=== PATIENT | female | born 1975 | race Hispanic/Latino ===

== ENCOUNTER 2017-07-10 12:42 | Emergency (ER) | payer OTHER ==
[~2017-07-10] VITALS: Ht 152.4 cm; Wt 113.6 kg
[2017-07-10 12:45] VITALS: BP 160/87; PULSE 98; RESP 17; O2SAT 100
--- NOTE | 2017-07-10 13:03 | ED.REPORT ---
HPI-Abd Pain F 40 and Over Date of Service Jul 10, 2017 ED Provider: Analilia Espino History of Present Illness: bilateral lower abd pain . started on 06/30, comes and goes. ongoing nausea. primary care is KENDELL Christy . Came in today because of positive test today. Had 2 previous etopic 12 years ago. Is pain free at present. Nursing Notes Stated Complaint: ABDOMINAL PAIN Chief Complaint: Female Abdominal Pain Nursing Notes Reviewed: Yes Allergies: Coded Allergies: clindamycin (Verified Allergy, Intermediate, HIVES, 07/10/17) doxycycline (Verified Allergy, Unknown, 09/11/15) lamotrigine (Verified Allergy, Unknown, 10/24/15) morphine (Verified Allergy, Unknown, FREAKS OUT, 09/11/15) Uncoded Allergies: SULFAMETHOXAZOLE-TMP DS (Allergy, Unknown, raised red rash/, 11/24/12) General Time Seen by MD: 13:02 Chief Complaint Other (positive pregnanat test, concerned about etopic) Sudden in Onset?: No Past Medical History Past Medical History Anxiety Reports: Asthma, Diabetes mellitus, GERD Past Surgical History History of ectopic times 2 Reports: Cholecystectomy Smoking History Never Smoker Social History Alcohol Use: "Social" Drug Use: Denies drug use Occupation single no work or school 07/10/2017 Ambulatory Status Independent Review of Systems Basic Review of Systems Eyes: Vision NL, No discharge Skin: No bruising, No rash, No itch Psychiatric: Normal thought content Physical Exam Vital Signs Vital Signs (First) Date Time Temp Pulse Resp B/P Pulse Ox O2 Delivery O2 Flow Rate FiO2 07/10/17 12:45 36.8 98 17 160/87 100 Room Air Initial VS: Reviewed, Vital signs normal Head / Eyes: Atraumatic, Normocephalic, PERRL ENT: Mucous membranes moist, Conjunctiva normal, No scleral icterus Neck: Supple, Non-tender, Full range of motion Lymphatic: No lymphadenopathy Extremities: Vascular intact, Neuro intact, No swelling, No tenderness Skin: Warm, Dry, No cyanosis Neurologic: Alert, Oriented, Nonfocal Psychiatric: Mood/affect normal, Behavior normal, Normal thought content General/Constitutional: Awake, Alert, No acute distress, Well appearing, Well developed Respiratory / Chest: Atraumatic, Breath sounds NL, Breath sounds = bilat, No respiratory distress Cardiovascular: Heart rate NL, Regular rhythm, Heart sounds NL, No gallop Abdomen: Atraumatic, Soft, Non-tender, McBurney's non-tender Back: Atraumatic, Inspection NL, Full range of motion, Painless range of motion ENT: Atraumatic, Airway patent, Mucous membranes moist, Pharynx NL Interpretation & Diagnostics Lab Results Interpretation Result Diagram: 07/10/17 1310 07/10/17 1310 Test 07/10/17 13:00 07/10/17 13:10 Urine Color Yellow (YELLOW) Urine Appearance Hazy (CLEAR,HAZY) Urine pH 6.0 (5.0-8.0) Urine Specific [place] 1.020 (1.003-1.035) Urine Protein Negativemg/dL (NEG,TRACE) Urine Glucose (UA) Negativemg/dL (NEGATIVE) Urine Ketones >=80mg/dL (NEGATIVE) Urine Occult Blood Small (NEGATIVE) Urine Nitrite Negative (NEGATIVE) Urine Bilirubin Small (NEGATIVE) Urine Ictotest Negative (Negative) Urine Urobilinogen Normalmg/dL (NORMAL) Urine Leukocyte Esterase Negative (NEGATIVE) Urine RBC 0-2/hpf (0-2) Urine WBC 0-5/hpf (0-5) Urine Epithelial Cells Few/hpf (NONE-MOD) Urine Crystals None seen (NONE SEEN) Urine Bacteria Moderate/hpf (NONE-FEW) Urine Hyaline Casts None/lpf (NONE) Urine Granular Casts None seen (NONE SEEN) Urine Waxy Casts None seen (NONE SEEN) Urine Red Blood Cell Casts None seen (NONE SEEN) Urine White Blood Cell Casts None seen (NONE SEEN) Urine Mucus Present (None Seen) Urine Trichomonas None seen (NONE SEEN) Urine Yeast None (NONE SEEN) Urinalysis Comment None Urine Culture Reflexed Indicated White Blood Count 11.1th/mm3 (3.8-10.1) Red Blood Count 5.11mil/mm3 (3.90-5.20) Hemoglobin 13.6g/dL (12.0-15.6) Hematocrit 41.6% (35.0-46.0) Mean Corpuscular Volume 81.4fL (81-100) Mean Corpuscular Hemoglobin 26.6pg (27.0-35.0) Mean Corpuscular Hemoglobin Concent 32.7% (32.0-37.0) Red Cell Distribution Width 14.1% (12.3-15.4) Platelet Count 347bil/L (150-400) Neutrophils (%) (Auto) 69.3% (40-74) Lymphocytes (%) (Auto) 24.9% (14-46) Monocytes (%) (Auto) 4.5% (4-12) Eosinophils (%) (Auto) 0.8% (0-5) Basophils (%) (Auto) 0.1% (0-3) Sodium Level 135mEq/L (134-144) Potassium Level 3.5mEq/L (3.5-5.2) Chloride Level 99mEq/L (97-108) Carbon Dioxide Level 17mmol/L (18-29) Blood Urea Nitrogen 11mg/dL (6-24) Creatinine 0.58mg/dL (0.57-1.00) Estimat Glomerular Filtration Rate 165mL/min (>59) Glucose Level 131mg/dL (60-99) Calcium Level 8.8mg/dL (8.5-10.1) Magnesium Level 1.9mg/dL (1.6-2.6) Total Bilirubin 0.3mg/dL (0.0-1.2) Aspartate Amino Transf (AST/SGOT) 22U/L (0-50) Alanine Aminotransferase (ALT/SGPT) 26U/L (0-32) Alkaline Phosphatase 65U/L (25-150) Total Protein 7.7g/dL (6.4-8.4) Albumin 4.3g/dL (3.4-5.0) Lipase 25U/L (13-60) Human Chorionic Gonadotropin, Qual 5468 (Negative) Hold Sweeney Top Tube Received (Received) US Focused OB PROCEDURE: US OB<14 WKS+OB TRANSVAG INDICATIONS: 42 year-old female with bilateral lower abdominal pain. OUTSIDE/PRIOR DATING DATA: Last menstrual period (LMP): June 16, 2017. LMP-based estimated date of delivery (DENY): March 23, 2017. First dating scan (date and location): Present examination. Estimated date of delivery (DENY) from first dating scan: March 09, 2017. TECHNIQUE: Real-time scanning was performed of the fetus and maternal pelvic organs, with image documentation. Endovaginal scanning was also performed to better visualize the fetus and maternal ovaries. COMPARISON: None. FINDINGS: Embryo: Single intrauterine gestational sac is present, with mean sac diameter of 5.6 mm corresponding with 5 weeks 2 days estimated gestational age. pole and yolk sac are not yet visualized. Measurement variability in dating: +/- 4 weeks by LMP, +/- 7 days by mean sac diameter (use before 6 weeks gestation if crown-rump length not able to be measured), +/- 5 days by crown-rump length (up to 8 weeks 6 days gestation), +/- 7 days by crown-rump length (up to 13 weeks 6 days gestation). Maternal organs: Ovaries are normal in size bilaterally, with right adnexal corpus luteal cyst of . IMPRESSION: 1. Single intrauterine gestational sac, with ultrasound derived estimated gestational age of 5 weeks 2 days, plus or minus one week. Yolk sac and pole are not yet visualized. As such, viable intrauterine cannot be confirmed at this time. 2. No sonographic explanation for bilateral lower abdominal pain. Dictated by: Jose Alberto Dhillon M.D. on 07/10/2017 at 16:20 Approved by: Jose Alberto Dhillon M.D. on 07/10/2017 at 16:26 Re-Eval/Medical Decision Med Decision/Clinical Course 42 year old female presents for evualation of positive test this am. Patient with hx of 2 prior etopic. US show gestational sac in the uterus, no heart rate yet. No sign of etopic, encouraged patient to follow with [facility] next week. Discharge & Departure Primary Impression: Weeks of gestation: less than 8 weeks Qualified Code: Z3A.01 - Less than 8 weeks gestation of Disposition: Home Patient Instructions: First Trimester (ED) Additional Instructions: Your labs are good. Your HCG is 5468, about 4 to 5 weeks along. The US shows a gestational sac in the uterus. At this time no heart beat is noted, it is likely too early. Please follow with [facility] on Wednesday. STD testing is pending. If anything comes back positive, we will contact you. Azithromycin is safe in , however, it is always best to keep medication to a minimum for the first 12 weeks. Congratulations! Continue with your prenatals. Referrals: Amie Christy MD (PCP) EDSupervising Provider for APC: Malachi Boateng MD copies to: Amie Christy MD, Sue ARNP Jul 10, 2017 13:03
[2017-07-10 13:33] LABS: BASOPHILS % (AUTO) 0.1 % (0-3); EOSINOPHILS % (AUTO) 0.8 % (0-5); MONOCYTES % (AUTO) 4.5 % (4-12); Mean Corpuscular Hemoglobin 26.6 pg (27.0-35.0); Mean Corpuscular Volume 81.4 fL (81-100); NEUTROPHILS % (AUTO) 69.3 % (40-74); Platelet Count 347 bil/L (150-400)
[2017-07-10 13:50] LABS: APPEARANCE,URINE HAZY (CLEAR,HAZY); COLOR,URINE YELLOW (YELLOW)
[2017-07-10 13:51] LABS: OCCULT BLOOD,URINE SMALL (NEGATIVE); UROBILINOGEN,URINE NORMAL (NORMAL)
[2017-07-10 13:52] LABS: ICTOTEST,URINE NEGATIVE (Negative)
[2017-07-10 14:09] LABS: Magnesium 1.9 mg/dL (1.6-2.6)
[2017-07-10 15:23] VITALS: BP 114/86; PULSE 78; RESP 20; O2SAT 98
[2017-07-10 16:07] VITALS: BP 114/86; PULSE 78; RESP 20; O2SAT 98
--- NOTE | 2017-07-10 16:28 | DRSVH ---
PROCEDURE: US OB<14 WKS+OB TRANSVAG INDICATIONS: 42 year-old female with bilateral lower abdominal pain. OUTSIDE/PRIOR DATING DATA: Last menstrual period (LMP): June 16, 2017. LMP-based estimated date of delivery (DENY): March 23, 2017. First dating scan (date and location): Present examination. Estimated date of delivery (DENY) from first dating scan: March 09, 2017. TECHNIQUE: Real-time scanning was performed of the fetus and maternal pelvic organs, with image documentation. Endovaginal scanning was also performed to better visualize the fetus and maternal ovaries. COMPARISON: None. FINDINGS: Embryo: Single intrauterine gestational sac is present, with mean sac diameter of 5.6 mm correspondin g with 5 weeks 2 days estimated gestational age. pole and yolk sac are not yet visualized. Measurement variability in dating: +/- 4 weeks by LMP, +/- 7 days by mean sac diameter (use before 6 weeks gestation if crown-rump length not able to be measured), +/- 5 days by crown-rump length (up t o 8 weeks 6 days gestation), +/- 7 days by crown-rump length (up to 13 weeks 6 days gestation). Maternal organs: Ovaries are normal in size bilaterally, with right adnexal corpus luteal cyst of pr egnancy. IMPRESSION: 1. Single intrauterine gestational sac, with ultrasound derived estimated gestational age of 5 weeks 2 days, plus or minus one week. Yolk sac and pole are not yet visualized. As such, viable intra uterine cannot be confirmed at this time. 2. No sonographic explanation for bilateral lower abdominal pain. Dictated by: Jose Alberto Dhillon M.D. on 07/10/2017 at 16:20 Approved by: Jose Alberto Dhillon M.D. on 07/10/2017 at 16:26
== END 2017-07-10 16:09 | disposition home or self-care (01) ==
LOC: SED 12:42
DX: O26.891 Other specified pregnancy related conditions, first trimester (principal); R10.30 Lower abdominal pain, unspecified; J45.909 Unspecified asthma, uncomplicated; K21.9 Gastro-esophageal reflux disease without esophagitis; E11.9 Type 2 diabetes mellitus without complications; Z90.49 Acquired absence of other specified parts of digestive tract; Z3A.01 Less than 8 weeks gestation of pregnancy; Z87.59 Personal history of other complications of pregnancy, childbirth and the puerperium; Z88.8 Allergy status to other drugs, medicaments and biological substances; Z88.5 Allergy status to narcotic agent; Z88.2 Allergy status to sulfonamides; Z88.1 Allergy status to other antibiotic agents

== ENCOUNTER 2017-07-22 20:35 | Emergency (ER) | payer OTHER ==
[~2017-07-22] VITALS: Ht 152.4 cm; Wt 112.3 kg
[2017-07-22 20:55] VITALS: BP 144/100; PULSE 94; RESP 16; O2SAT 98
--- NOTE | 2017-07-22 21:20 | ED.REPORT ---
HPI-Preg Under 20 Weeks Date of Service Jul 22, 2017 ED Provider: Denys Wu MD Pt is a 6 week 4 day , 42 year old female with a history of asthma, diabetes mellitus, and anxiety who presents to the ED complaining of abnormal bleeding during intercourse onset tonight. Pt states that she felt no pain during the intercourse. She has had two previous ectopic pregnancies 12 years ago, but was seen in the ED on 07/10/17 for abdominal pain and determined that her was uterine and normal. Additional symptoms include mild dysuria that is baseline after intercourse, rib pain, nausea, vomiting, and difficult eating. Pt denies abdominal pain, vaginal pain now or vaginal discharge prior to having intercourse or in previous pregnancies. Nursing Notes Stated Complaint: BLEEDING, 2 MONTHS Chief Complaint: Female Abdominal Pain Nursing Notes Reviewed: Yes Allergies: Coded Allergies: clindamycin (Verified Allergy, Intermediate, HIVES, 07/22/17) doxycycline (Verified Allergy, Unknown, 07/22/17) lamotrigine (Verified Allergy, Unknown, 07/22/17) morphine (Verified Allergy, Unknown, FREAKS OUT, 07/22/17) Uncoded Allergies: SULFAMETHOXAZOLE-TMP DS (Allergy, Unknown, raised red rash/, 11/24/12) General Time Seen by Provider: 21:19 Chief Complaint Vaginal bleeding Context: : Known 1st trim Hx Obtained From: Patient Arrived By: Walk-in Onset Occurred: 1 - 4 hours ago Severity: Current: No pain currently Severity: Maximum: No pain Recent Healthcare: Recent doctor visit Similar Sx Previous: No Past Medical History Past Medical History Anxiety Reports: Asthma, Diabetes mellitus, GERD Past Surgical History History of ectopic times 2 Reports: Cholecystectomy Smoking History Never Smoker Social History Alcohol Use: "Social" Drug Use: Denies drug use Ambulatory Status Independent Review of Systems Difficulty eating No vaginal pain currently GI: Reports: Nausea, Vomiting, Denies: Abdominal pain Female: Reports: Dysuria (mild, baseline during intercourse), Vaginal bleeding - abnl, Denies: Vaginal discharge Complete sys rev & neg: except as marked. Physical Exam Initial Vital Signs Vital Signs (First) Date Time Temp Pulse Resp B/P Pulse Ox O2 Delivery O2 Flow Rate FiO2 07/22/17 20:55 36.9 94 16 144/100 98 Room Air Initial VS: Reviewed, Vital signs abnormal Head / Eyes: Atraumatic, Normocephalic Neck: Supple, Full range of motion Extremities: Vascular intact, Neuro intact, No swelling, No tenderness Skin: Warm, Dry, No cyanosis Neurologic: Alert, Oriented, Nonfocal Psychiatric: Mood/affect normal, Behavior normal, Normal thought content General/Constitutional: Awake, Alert Abdomen: Atraumatic, Non-tender Respiratory / Chest: Atraumatic, Breath sounds NL, Breath sounds = bilat, No respiratory distress Cardiovascular: Heart rate NL, Regular rhythm, Heart sounds NL Interpretation & Diagnostics US PELVIS TRANSVAGINAL: 1. 6 week 4 day single live IUP. 2. Normal right ovary. Left ovary is not visualized. Lab Results Interpretation Test 07/22/17 21:10 Hold Urine Received (Received) Re-Eval/Medical Decision Med Decision/Clinical Course 42-year-old female with a history of 2 ectopic pregnancies in the past presents with some bleeding after intercourse. She is approximately 8 weeks along. Ultrasound shows a viable 4-6 week intrauterine . Source of Hx: Old records Re-Evaluation/Progress : Time of Eval: 22:45 Patient Status: Condition improved Re-Evaluation/Progress Note: Patient rechecked. Discussed plan for discharge. Patient understands and agrees with plan. F/U instructions and RTER warnings given. All questions addressed at this time. Counseled Regarding: Diagnosis, Lab results, Need for follow-up, When/why to return to ED Discharge & Departure Primary Impression: Bleeding in early Disposition: Home Discharge Condition All VS Reviewed: Yes Condition: Stable Patient Instructions: Threatened Miscarriage (ED) Additional Instructions: The ultrasound looks okay. I have included instructions for what to watch for in case this is the start of a miscarriage, but there is no way to tell that at this point. Call me at [phone] between 9 PM and 6 AM for the next couple nights if you have any questions or concerns. Avoid intercourse or heavy activity for the next few days. Follow-up with your regular doctor as soon as possible. Referrals: Amie Christy MD (PCP) Scribe Attestation Portions of this note were transcribed by Maia Giordano. I, Dr. Wu, personally performed the history, physical exam and medical decision-making; I reviewed and confirmed the accuracy of the information in the transcribed note. copies to: Amie Christy MD, Denys Pike MD Jul 22, 2017:20 Maia Giordano Jul 22, 2017 21:28 Denys Wu MD Jul 22, 2017 21:20 Maia Giordano Jul 22, 2017 21:28
[2017-07-22 22:54] VITALS: BP 137/97; PULSE 80; RESP 16; O2SAT 97
--- NOTE | 2017-07-23 08:27 | DRSVH ---
PROCEDURE: US OB<14 WKS INDICATIONS: bleeding OUTSIDE/PRIOR DATING DATA: Last menstrual period (LMP): 06/16/2017. LMP-based estimated date of delivery (DENY): 03/23/2018. First dating scan (date and location): 07/10/2017. Estimated date of delivery (DENY) from first dating scan: 03/13/2018. TECHNIQUE: Real-time scanning was performed of the fetus and maternal pelvic organs, with image documentation. Endovaginal scanning was also performed to better visualize the fetus and maternal ovaries. COMPARISON: [facility], US, US OB<14 WKS+OB TRANSVAG, 07/10/2017, 15:05. FINDINGS: Embryo: OB-VERIFIER Ultrasound Procedure Report Early Gestation [employer] Mean Gestational Sac Diameter: - Gestational Age (MGSD): - [place] Rump Length: 7.40 mm Gestational Age (CRL): 6 weeks, 4 days Summary Fetus Summary Heart Rate: 166 bpm Comments: A normal yolk sac is noted. No perigestational bleeds. Measurement variability in dating: +/- 4 weeks by LMP, +/- 7 days by mean sac diameter (use before 6 weeks gestation if crown-rump length not able to be measured), +/- 5 days by crown-rump length (up t o 8 weeks 6 days gestation), +/- 7 days by crown-rump length (from 9 weeks to 13 weeks 6 days gestati on). Maternal organs: Left ovary is not visualized. Right ovary demonstrates normal echotexture and blood flow on Doppler ultrasound. IMPRESSION: 1. A single living intrauterine gestation with the estimated gestational age of 6 weeks 4 days. Ultra sound DENY 03/13/2018. 2. Normal right ovary. Left ovary is not visualized. No significant discrepancy with the hospital ward clerk radiology preliminary report. Dictated by: Dory Pate M.D. on 07/23/2017 at 8:14 Transcribed by: JU on 07/23/2017 at 8:26 Approved by: Dory Pate M.D. on 07/23/2017 at 17:29
== END 2017-07-22 22:54 | disposition home or self-care (01) ==
LOC: SED 20:35
DX: O20.9 Hemorrhage in early pregnancy, unspecified (principal); Z3A.01 Less than 8 weeks gestation of pregnancy; J45.909 Unspecified asthma, uncomplicated; K21.9 Gastro-esophageal reflux disease without esophagitis; E11.9 Type 2 diabetes mellitus without complications; F41.9 Anxiety disorder, unspecified; Z88.1 Allergy status to other antibiotic agents; Z88.5 Allergy status to narcotic agent; Z88.8 Allergy status to other drugs, medicaments and biological substances